=== PATIENT | female | born 1975 | race Caucasian/White ===

== ENCOUNTER 2023-07-25 07:35 | Day surgery (SDC) | payer BC ==
[2023-07-25] VITALS (12 sets, daily range): BP systolic 125–156; BP diastolic 63–86; PULSE 92–100; RESP 15–20; TEMP 97.3; O2SAT 95–100
[~2023-07-25] VITALS: Ht 177.8 cm; Wt 200.9 kg
[~2023-07-25 07:35] MED LIST: BUPR-317 PO; DULO60CA65 PO; LEVO88TA7 PO; OMEP20CA16 PO; mupirocin 2% ointment 22GM ONE
[2023-07-25] MEDS: oxymetazoline 15 ML nasal spray NS ONE ×2 (09:01→10:41)
[2023-07-25] MEDS: clindamycin-Cleocin 900mg/D5W 50 ML IV ONE (09:02)
[2023-07-25] MEDS: tranexamic acid inj. 1,000 MG in normal saline IV soln 100ML IV ONE (09:02)
[2023-07-25] MEDS: famotidine 20mg tablet PO ONE (09:02)
[2023-07-25] MEDS: ringers solution, lacted 1,000 ML IV SCH (09:03)
[2023-07-25] MEDS ORDERED: sevoflurane 250ml liquid IH ONE (09:27)
[2023-07-25 09:39] LABS: BASOPHILS # (AUTO) 0.1 X10'3 (0-0.2); BASOPHILS % (AUTO) 1.1 % (0-1); EOSINOPHILS # (AUTO) 0.1 X10'3 (0-0.9); EOSINOPHILS % (AUTO) 1.4 % (0-6); LYMPHOCYTES # (AUTO) 1.3 X10'3 (1.1-4.8); LYMPHOCYTES % (AUTO) 18.7 % (21-51); MEAN CORPUSCULAR HEMOGLOBIN 28.2 PG (27.0-31.0); MEAN CORPUSCULAR VOLUME 85.3 FL (78-98); MEAN PLATELET VOLUME 7.5 FL (7.4-10.4); MONOCYTES # (AUTO) 0.5 X10'3 (0-0.9); MONOCYTES % (AUTO) 7.1 % (2-12); NEUTROPHILS # (AUTO) 4.8 X10'3 (1.8-7.7); NEUTROPHILS % (AUTO) 71.7 % (42-75); PRE OP HEMATOCRIT 44.6 % (35.0-45.0); PRE OP HEMOGLOBIN 14.7 g/dL (12.0-16.0); PRE OP PLATELET COUNT 298 X10'3 (140-440); PRE OP WHITE BLOOD COUNT 6.7 10'3 (4.8-10.8); RED BLOOD COUNT 5.23 X10'6 (4.20-5.60); RED CELL DISTRIBUTION WIDTH 14.1 % (11.5-14.5)
[2023-07-25] MEDS ORDERED: midazolam 1 mg/ML 2ml injection ONE (09:47)
[2023-07-25] MEDS ORDERED: fentaNYL /PF 50mcg/ml 5ml ampule ONE (09:47)
[2023-07-25] MEDS ORDERED: propofol inj 20 ML IV ONE (09:57)
[2023-07-25] MEDS ORDERED: LIDOcaine 2% (20mg/ml) 5ml vial ONE (09:57)
[2023-07-25] MEDS ORDERED: rocuronium 10mg/ml inj IV ONE (10:02)
[2023-07-25] MEDS: epiNEPHrine 1 mg/ml 30ml MDV ONE (10:40)
[2023-07-25] MEDS: cocaine 4% topical solution 4ml bottle ONE (10:40)
[2023-07-25] MEDS: LIDOcaine 1% w/EPI 1:100,000 inj. MDV 50 ML VIAL ONE (10:40)
[2023-07-25] MEDS: mupirocin 2% ointment 22GM ONE (10:41)
[2023-07-25] MEDS: tranexamic acid 100mg/ml inj. ONE (10:41)
[2023-07-25] MEDS ORDERED: ondansetron/PF 4mg/2ml inj ONE (11:23)
[2023-07-25] MEDS ORDERED: labetalol 20mg/4ml (5mg/ml) syringe IV ONE (11:25)
[2023-07-25] MEDS ORDERED: esmolol inj. 10 ML IV ONE (11:25)
[2023-07-25] MEDS ORDERED: ondansetron/PF 4mg/2ml inj IV PRN (12:10)
[2023-07-25] MEDS ORDERED: meperidine/PF 25mg/ml syringe IV PRN ×3 (12:10)
[2023-07-25] MEDS ORDERED: enalaprilat dihydrate 2.5mg/2ml vial IV PRN (12:10)
[2023-07-25] MEDS ORDERED: proCHLORperazine 10 MG/2 ml inj IV PRN (12:10)
[2023-07-25] MEDS ORDERED: morphine 4 MG/ML inj SYRINge IV PRN (12:10)
[2023-07-25] MEDS ORDERED: morphine 2 MG/ML inj. syringe IV PRN (12:10)
[2023-07-25] MEDS ORDERED: ringers solution, lacted 1,000 ML IV SCH (12:10)
[2023-07-25] MEDS ORDERED: labetalol 20mg/4ml (5mg/ml) syringe IV PRN (12:10)
[2023-07-25] MEDS: mupirocin 2% nasal ointment 1gm UD NS SCH (12:42)
[2023-07-25] MEDS: salt irrigation nasal spray 45 ML SPRAY NS SCH (12:43)
[2023-07-25] MEDS ORDERED: oxymetazoline 15 ML nasal spray NS SCH (13:00)
[2023-07-25] MEDS ORDERED: salt irrigation nasal spray 45 ML SPRAY NS SCH (13:00)
[2023-07-25] MEDS ORDERED: mupirocin 2% nasal ointment 1gm UD NS SCH (13:00)
== END 2023-07-25 13:22 | disposition home or self-care (01) ==
LOC: PAS 07:35
PROVIDERS: ATTEND Otolaryngology
DX: J34.2 Deviated nasal septum (principal); J34.3 Hypertrophy of nasal turbinates; J32.9 Chronic sinusitis, unspecified; E03.9 Hypothyroidism, unspecified; E66.01 Morbid (severe) obesity due to excess calories; K21.9 Gastro-esophageal reflux disease without esophagitis; F41.9 Anxiety disorder, unspecified; F32.A Depression, unspecified; G47.30 Sleep apnea, unspecified; I25.2 Old myocardial infarction; Z79.899 Other long term (current) drug therapy; Z98.84 Bariatric surgery status; Z98.890 Other specified postprocedural states; Z68.44 Body mass index [BMI] 60.0-69.9, adult; Z88.0 Allergy status to penicillin; Z88.1 Allergy status to other antibiotic agents
CPT/HCPCS: 30140; 30520; 31254; 31267; 31276; 36415; 61782; 82948; 85025; 87070; 87075; 87077; 87186; 93005; A6402; J0171; J1100; J2250; J2405; J2704; J2710; J3010; J3490; J7030; J7050; J7120; Z7506; Z7508; Z7512; A4618; A6449; A7000